=== PATIENT | male | born 1960 | race Caucasian/White ===

== ENCOUNTER → 2017-12-05 | Outpatient (CLI) | payer BC ==
[~2017-12-05] MED LIST: GADOBUTROL 10 MMOL/10 ML PFS ONE
== END | disposition home or self-care (01) ==
LOC: CFH 10:39
PROVIDERS: ATTEND Psychiatry & Neurology Neurology
DX: I67.82 Cerebral ischemia (principal); R90.82 White matter disease, unspecified; G93.89 Other specified disorders of brain; H81.10 Benign paroxysmal vertigo, unspecified ear
CPT/HCPCS: 70553; A9585